=== PATIENT | female | born 1955 | race Caucasian/White ===

== ENCOUNTER 2017-09-25 07:45 | Emergency (ER) | payer OTHER ==
[~2017-09-25] VITALS: Ht 157.5 cm; Wt 132.0 kg
[2017-09-25] MEDS ORDERED: IBUPROFEN 600MG TABLET PO ONE (08:30)
[2017-09-25 11:05] VITALS: BP 144/74
== END 2017-09-25 11:05 | disposition home or self-care (01) ==
LOC: ER 08:37
DX: M54.2 Cervicalgia (principal); M25.512 Pain in left shoulder; I11.0 Hypertensive heart disease with heart failure; I50.9 Heart failure, unspecified; Z88.1 Allergy status to other antibiotic agents; Z88.2 Allergy status to sulfonamides; V44.5XXA Car driver injured in collision with heavy transport vehicle or bus in traffic accident, initial encounter; Y93.89 Activity, other specified; Y92.89 Other specified places as the place of occurrence of the external cause; Y99.8 Other external cause status
CPT/HCPCS: 99283